=== PATIENT | male | born 1990 | race Caucasian/White ===

== ENCOUNTER 2022-06-21 11:33 | Emergency (ER) | payer OTHER, SELFPAY ==
[2022-06-21 11:39] VITALS: BP 132/90; PULSE 113; RESP 21; O2SAT 100
--- NOTE | 2022-06-21 12:10 | ED.GENADULT ---
HPI - General Adult General Chief complaint: Psychiatric Symptoms Stated complaint: psych/invol Time Seen by Provider: 06/21/22 11:53 History of Present Illness HPI narrative: 31-year-old male with previous diagnosis of schizophrenia presenting to the emergency department for psych evaluation. Patient told police that if he was admitted to a psych hospital he would probably kill someone. Patient states that was Expression and patient continues to deny any homicidal or suicidal ideation. Related Data Allergies Allergy/AdvReac Type Severity Reaction Status Date / Time No Known Allergies Allergy Unknown Unverified 06/21/22 12:14 Review of Systems Review of Systems: CONSTITUTIONAL: Denies fever, chills, or sweats. EYES: Denies visual changes, redness, or discharge. ENT: Denies rhinorrhea, congestion, sore throat, or otalgia. CARDIOVASCULAR: Denies chest pain, palpitations, or edema. RESPIRATORY: Denies cough or dyspnea. GASTROINTESTINAL: Denies abdominal pain, nausea, vomiting, or diarrhea. GENITOURINARY: Denies dysuria or hematuria. SKIN: Denies rash or itching. MUSCULOSKELETAL: Denies back pain, joint pain, or myalgia. NEUROLOGIC: Denies headache, numbness, or weakness. PSYCHIATRIC: Schizophrenia PMFSH Social History Social History Substance use type: marijuana and amphetamines Exam Narrative: APPEARANCE: Well appearing, no pain, no distress, well-nourished. HEAD: normocephalic, atraumatic. EYES: PERRLA/EOMI, conjunctivae clear. NOSE: Normal no drainage EARS:TMS clear with good light reflex. THROAT: Pharynx clear, no exudate. NECK: Supple. No adenopathy, no masses. RESPIRATORY: Airway patent, respirations nonlabored. Clear to auscultation bilaterally, no rales, rhonchi, wheezing. CARDIOVASCULAR: Regular rate and rhythm without murmurs rubs or gallops. ABDOMINAL: Soft, nontender, nondistended, normal bowel sounds MUSCULOSKELETAL: Moves all extremities. Strength/ROM intact, No edema, No calf tenderness. NEURO: Alert. Cranial nerves II through XII intact. Grossly intact SKIN: Warm, dry. Normal Color PSYCHIATRIC: Normal affect/mood. Course Course Emergency Course: Patient was evaluated by the crisis counselor and signed a safety agreement. Patient denies homicidal or suicidal ideation. Reevaluation(s) Reevaluation #1: Patient is medically cleared to be evaluated by the crisis counselor. Patient is also medically cleared for inpatient psychiatric placement as needed. Vital Signs Vital signs: Vital Signs Pulse Rate 113 H 06/21/22 11:39 Respiratory Rate 21 H 06/21/22 11:39 Blood Pressure 132/90 06/21/22 11:39 Pulse Oximetry 100 06/21/22 11:39 Pulse Rate 113 H 06/21/22 11:39 Respiratory Rate 21 H 06/21/22 11:39 Blood Pressure 132/90 06/21/22 11:39 Pulse Oximetry 100 06/21/22 11:39 Medical Decision Making Vital Signs Vital Signs: Vital Signs Pulse Rate 113 H 06/21/22 11:39 Respiratory Rate 21 H 06/21/22 11:39 Blood Pressure 132/90 06/21/22 11:39 Pulse Oximetry 100 06/21/22 11:39 Pulse Rate 113 H 06/21/22 11:39 Respiratory Rate 21 H 06/21/22 11:39 Blood Pressure 132/90 06/21/22 11:39 Pulse Oximetry 100 06/21/22 11:39 Lab Data Lab results reviewed: Yes I reviewed the patient's lab results. Result diagrams: 06/21/22 12:10 06/21/22 12:10 Labs: Lab Results 06/21/22 06/21/22 06/21/22 Range/Units 12:10 12:10 12:28 WBC 10.8 H (4.5-10.0) K/mm3 RBC 4.60 (4.6-6.20) M/mm3 Hgb 14.6 (14.0-18.0) g/dL Hct 42.9 (42.0-52.0) % MCV 93.3 (80-100) fl MCH 31.7 (26-34) pg MCHC 34.0 (32-36) g/dl RDW 12.5 (11.5-14.5) % Plt Count 219 (150-375) k/mm3 MPV 9.0 (7.4-10.4) fl Immature Gran % (Auto) 0.4 (0-0.5) % Neut % (Auto) 65.9 (45.5-73.1) % Lymph % (Auto) 24.8 (18.3-44.2) % [place] % (Auto) 7.1 (2.6-8.5) % Eos % (Auto) 1.1 (0-4.4) % Baso % (Auto) 0.7 (0.2
[2022-06-21 12:26] LABS: Basophils Absolute Auto 0.1 K/mm3 (0.0-0.1); Basophils Percent Auto 0.7 % (0.2-1.2); Eosinophils Absolute Auto 0.1 K/mm3 (0-0.3); Eosinophils Percent Auto 1.1 % (0-4.4); Hematocrit 42.9 % (42.0-52.0); Hemoglobin 14.6 g/dL (14.0-18.0); Immature Granulocyte Absolute 0.04 K/mm3 (0.00-0.031); Immature Granulocyte Percent A 0.4 % (0-0.5); Lymphocytes Absolute Auto 2.67 K/mm3 (0.9-3.2); Lymphocytes Percent Auto 24.8 % (18.3-44.2); Mean Corpuscular Hemoglobin 31.7 pg (26-34); Mean Corpuscular Volume 93.3 fl (80-100); Monocytes Absolute Auto 0.8 K/mm3 (0.1-0.6); Monocytes Percent Auto 7.1 % (2.6-8.5); Neutrophils Absolute Auto 7.1 K/mm3 (1.3-6.7); Neutrophils Percent Auto 65.9 % (45.5-73.1); Platelet Count Result 219 k/mm3 (150-375); Red Cell Distribution Width 12.5 % (11.5-14.5); White Blood Count 10.8 K/mm3 (4.5-10.0)
[2022-06-21 12:35] LABS: Alanine Aminotransferase 25 U/L (6-50); Albumin Level 4.6 g/dL (3.5-5.1); Alkaline Phosphatase 85 U/L (38-126); Anion Gap 7 mmol/L (8-16); Aspartate Amino Transferase 31 U/L (17-59); Bilirubin,Total 0.6 mg/dL (0.2-1.3); Blood Urea Nitrogen 17 mg/dL (9-20); Calcium 8.9 mg/dL (8.4-10.2); Carbon Dioxide 30 mmol/L (22-30); Chloride 100 mmol/L (98-107); Estimated CRCL calculation 79 ml/min; Estimated Glomerular Filt Rate > 60; Glucose 103 mg/dL (65-110); Potassium 3.9 mmol/L (3.4-5.0); Sodium 137 mmol/L (137-145)
[2022-06-21 12:48] LABS: Acetaminophen < 10 ug/mL (10-30); Ethanol < 10 mg/dL (<10); Salicylate < 1.0 mg/dL (2-20)
[2022-06-21 12:59] LABS: Appearance Urine Clear (Clear); Bilirubin Urine Negative (Negative); Blood Urine Trace-lysed (Negative); Color Urine Yellow (Yellow); Glucose Urine UA Negative (Negative); Ketones Urine Trace mg/dL (Negative); Leukocyte Esterase Ur Negative LEU/UL (Negative); Nitrate Urine Negative (Negative); Protein Urine 1+ mg/dL (Negative); Specific Grav Ur 1.025 (1.001-1.035); Urobilinogen Urine 0.2 mg/dL (<2.0)
[2022-06-21 13:04] LABS: Bacteria Urine Trace /hpf; Hyaline Casts Urine 15-19 /lpf; Mucus Urine Rare /lpf; RBC Urine 0-2 /hpf (0-2)
[2022-06-21 13:05] LABS: Add Urine Microscopic? YES
[2022-06-21 13:14] LABS: SARS-CoV-2 RNA PCR Negative
[2022-06-21 13:16] LABS: Barbiturate Screen Urine Negative (Negative); Benzodiazepines Screen Urine Negative (Negative)
[2022-06-21 13:24] LABS: Cannabinoid Screen Urine Negative (Negative); Cocaine Screen Urine Negative (Negative); Methadone Screen Urine Negative (Negative); Opiate Screen Urine Negative (Negative); Phencyclidine Screen Urine Negative (Negative)
[2022-06-21 13:29] LABS: Thyroid Stimulating Hormone Reflex 0.766 uIU/mL (0.465-4.68)
[2022-06-21 13:44] LABS: Thyroid Stimulating Hormone 0.784 uIU/mL (0.465-4.680)
[2022-06-21 15:04] LABS: Amphetamine Screen Urine Positive (Negative)
== END 2022-06-21 14:29 | disposition home or self-care (01) ==
PROVIDERS: Emergency Provider Emergency Medicine; PCP Internal Medicine
DX: Z04.6 Encounter for general psychiatric examination, requested by authority (principal); F20.9 Schizophrenia, unspecified; Z20.822 Contact with and (suspected) exposure to COVID-19
CPT/HCPCS: 36415; 80053; 80307; 81001; 84443; 85025; 99284; C9803; U0003; U0005

== ENCOUNTER 2024-01-02 23:15 | Emergency (ER) | payer OTHER, SELFPAY ==
[2024-01-02 23:53] VITALS: BP 103/69; PULSE 68; RESP 20; TEMP 36.7; O2SAT 100
--- NOTE | 2024-01-02 23:57 | PC.NURSE ---
Upon triage assessment pt stated he was going to leave. This RN educated pt on s/s that warrant a return visit and to call EMS or return if sx worsen.
== END 2024-01-02 23:59 | disposition left against medical advice (07) ==
PROVIDERS: PCP Internal Medicine
DX: J02.9 Acute pharyngitis, unspecified (principal)
CPT/HCPCS: 99199